=== PATIENT | male | born 1975 | race Caucasian/White ===

== ENCOUNTER 2020-02-05 08:07 | Emergency (ER) | payer MEDICAID, SELFPAY ==
[2020-02-05 08:07] VITALS: BP 136/91; PULSE 130; RESP 20; TEMP 36.6; O2SAT 100; BMI 25.1
--- NOTE | 2020-02-05 08:17 | ED.DCSUM_ITS ---
History of Present Illness Chief Complaint: Anxiety Informant: Patient Narrative: 44-year-old male presenting with anxiety. He states he has had this for 10 years or longer. He states he is usually able to control it with breathing techniques, and if this does not work he will take a couple of shots of liquor which will help it. He is not an everyday drinker. He states his symptoms have been constant since 730 last evening. He states he is never been diagnosed formally because he was never 1 that goes to the doctor. Denies chest pain or shortness of breath. He does feel palpitations. Medical history. No surgical history. No allergies to medicine. Prior similar symptoms: Yes Recent Illness/Hospitalization: No Past Medical History - Allergies and Home Meds Allergies/Adverse Reactions: Allergies No Known Allergies Allergy (Verified 02/05/20 08:09) Primary Care Physician: Care Physician,No Primary [Primary Care Provider] - Prior records reviewed: Yes Past Medical History: - - Anxiety Surgical History: noncontributory Lives: Alone Smoking Status: Unknown if ever smoked Alcohol: None Drugs: None Review of Systems General: Denies: Chills, Fever, Sweats Eyes: Denies: Visual changes - bilaterally, Diplopia ENT: Denies: Rhinorrhea, Sore throat Cardiovascular: Reports: Palpitations, Heart racing. Denies: Chest pain Respiratory: Denies: Dyspnea, Cough, Dyspnea on exertion Gastrointestinal: Denies: Abdominal pain, Nausea, Vomiting, Diarrhea, Melena, Hematochezia Genitourinary: Denies: Dysuria, Hematuria, Frequency Musculoskeletal: Denies: Back pain, Extremity Pain Skin: Denies: Rash, Wounds Neurological: Reports: Parasthesia - Angling in bilateral hands.. Denies: Headache, Weakness, Numbness Psych: Reports: Anxiety. Denies: Suicidal thoughts, Suicidal ideations Physical Exam Vital Signs/Narrative: Vital Signs Temp Pulse Resp BP Pulse Ox 02/05/20 08:07 97.8 F 130 H 20 H 136/91 H 100 Inital Vital Signs reviewed: Yes General: Well nourished, No Acute Distress Head: Normocephalic, Atraumatic Eyes: Perrl, EOMI ENT: Moist mucous membranes, No rhinorrhea Cardiovascular: Regular rhythm, Tachycardia. Negative for: No murmurs Respiratory: No distress, CTA bilaterally Extremities: Nontender, No edema Skin: Normal color, No rash. Negative for: Cyanosis, Diaphoresis Neurological: Alert, Oriented x3, Cranial nerves II-XII grossly intact Psychological: Normal affect, - - Anxious Diagnostic/Tx/Re-eval - Rhythm Strip Rhythm Strip: Sinus Rhythm Rate: 122 - EKG Initial EKG Interpretation: No Acute Injury Pattern, Sinus Tachycardia - Medical Decision Making Patient presents with symptoms of anxiety and he states he has had this for a very long time. Is never been this bad. He states that he is hyperventilating although he does not feel short of breath. Given his symptoms I did do blood work and an EKG. EKG is sinus rhythm at a rate of 102 without ischemic changes as interpreted by myself. Blood work is consistent with a viral illness as he is leukopenic and lymphopenic. Chest x-ray is interpreted by myself and radiologist shows no acute process. I went back to talk to the patient and he states he is having the chills right now. He has not had a fever and does not feel febrile. Given his symptoms I did test him for Covid?19. Since his work- up is negative I feel he is safe to be discharged home will quarantine until he gets his test results. Impression: 1. Anxiety reaction 2. Viral syndrome ED Disposition - Plan for ED Patient: Disposition: Home or Assisted Living Instructions: Coronavirus Disease 2019 (COVID-19): Overview, Coronavirus Disease 2019 (COVID-19): Caring for Yourself or Others, ED Anxiety Reaction Prescriptions: Hydroxyzine HCl 25 mg PO Q8H PRN PRN #30 tab PRN Reason: Anxiety Prescription Printed Referrals: Care Physician,No Primary [Primary Care Provider] -
--- NOTE | 2020-02-05 08:25 | RAD_ITS ---
STUDY: X-RAY CHEST REASON FOR EXAM: Male, 44 years old. ANXIETY SUDDEN ONSET LAST NIGHT 1899. TINGLING TO HANDS, INCREASED HEART RATE TECHNIQUE: Single AP portable view of the chest. COMPARISON: None. FINDINGS: The lungs are clear and expanded. There is no demonstrated pleural abnormality. Normal size heart. Normal mediastinum and ga. Normal visualized pulmonary arteries. Normal visualized aortic arch and descending thoracic aorta. Normal visualized thoracic spine. Normal visualized ribs, clavicles, and shoulders. There is no demonstrated abnormality of the visualized soft tissue structures of the upper abdomen. RAD/Chest 1 View (Portable) IMPRESSION: Normal x-ray examination of the chest. Electronically Signed: Chema Campa MD at 10:00 EST Tel , Service support ,
--- NOTE | 2020-02-05 08:25 | EKG12_ITS ---
Test Reason : Blood Pressure : / mmHG Vent. Rate : 122 BPM Atrial Rate : 122 BPM P-R Int : 152 ms QRS Dur : 086 ms QT Int : 330 ms P-R-T Axes : 080 047 077 degrees QTc Int : 470 ms Sinus tachycardia Cannot rule out Inferior infarct , age undetermined Abnormal ECG Confirmed by GASPER HERMAN, NATALIE ([id number]), editorial writer ADRIAN ANDRES ([id number]) on 02/11/2020 9:19:15 AM Referred By: MAIA Confirmed By:PATTY JACKMAN MD
--- NOTE | 2020-02-05 08:28 | NURSING ---
NO OLD EKGS
[2020-02-05 09:24] LABS: Absolute Lymphocyte Count 0.41 X10^3/uL (0.83-4.51); Absolute Neutrophil Count 2.9 X10^3/uL (2.0-7.7); Basophil# 0.02 X10^3/uL; Basophil% 0.6 % (0-1); Hematocrit 45.9 % (40-54); Hemoglobin 16.4 g/dL (13.0-16.5); Lymphocyte # 0.41 X10^3/ul (4.0); Lymphocyte % 11.4 % (19-41); Mean Corp Hgb Conc 35.7 g/dL (32-36); Mean Corpuscular Hgb 34.5 pg (27.0-32.0); Mean Corpuscular Volume 96.4 fL (80-94); Mean Platelet Vol. 10.7 fl (6.2-12.0); Monocyte# 0.29 X10^3/uL; Monocyte% 8.1 % (0-10); NRBC Flagged by Analyzer 0 % (0-5); Neutrophil # 2.86 X10^3/uL (2.7-7.7); Neutrophil % 79.6 % (47-70); POSITIVE COUNT YES; POSITIVE DIFFERENTIAL YES; Platelet Count 88 K/mm3 (150-450); RBC Distribution Width CV 11.6 % (11.6-14.6); Red Blood Count 4.76 M/mm3 (4.6-6.2); White Blood Count 3.6 K/mm3 (4.4-11.0)
[2020-02-05 09:25] VITALS: BP 153/116; PULSE 101; RESP 19; O2SAT 100
[2020-02-05 09:25] LABS: Differential Indicated SCAN CRITERIA MET
[2020-02-05] MEDS: Aspirin 81 MG TAB.CHEW 324 MG PO (09:26)
[2020-02-05] MEDS: 0.9% Normal Saline 1,000 ML 1000 ML IV (09:26)
[2020-02-05] MEDS: LORazepam 2 MG/ML Syringe 0.5 MG IV (09:27)
[2020-02-05 09:38] LABS: Anion Gap 16 (5-15); BUN 8 mg/dL (7-18); BUN/Creat Ratio 9.1 RATIO (10-20); Calcium,Total 9.4 mg/dL (8.5-10.1); Chloride 98 mmol/L (98-107); Creatinine, Serum 0.88 mg/dL (0.70-1.30); EST Glomerular Filtration Rate 100 mL/min (>60); Est Glom Filt Rate - Afr Amer 121 mL/min (>60); Estimated Creatinine Clearance 111.76 ml/min; Glucose 110 mg/dL (74-106); Potassium 3.1 mmol/L (3.5-5.1); Sodium Level 136 mmol/L (136-145)
[2020-02-05 10:08] VITALS: BP 159/67; PULSE 52; RESP 16; O2SAT 98
[2020-02-06 11:43] LABS: Pathologist Review Reviewed
== END 2020-02-05 10:22 | disposition home or self-care (01) ==
PROVIDERS: Emergency Provider Student in an Organized Health Care Education/Training Program
DX: F41.1 Generalized anxiety disorder (principal); B34.9 Viral infection, unspecified
CPT/HCPCS: 71045; 80048; 84484; 85025; 87426; 93005; 96361; 96374; 99284; J7030; A4216

== ENCOUNTER 2020-09-21 10:23 | Emergency (ER) | payer MEDICAID, SELFPAY ==
[2020-03-05 11:10] VITALS: BMI 25.1
[2020-09-21 10:24] VITALS: BP 143/106; PULSE 118; RESP 16; TEMP 36.4; O2SAT 99; BMI 24.2
[2020-09-21] MEDS: predniSONE 20 MG Tablet 40 MG PO (10:40)
--- NOTE | 2020-09-21 10:41 | EX.ED.DYSGE1 ---
HPI History of Present Illness Chief Complaint: Rash Informant: patient Narrative Narrative: Patient is a 45-year-old male who is previously healthy who presents to the emergency department for rash on his face, arms, abdomen. He states that he was working out in the yard this past Tuesday and thinks he could have been exposed to poison jacquelyn. He is never had a reaction like this before. He has been trying calamine lotion for which has not been giving significant relief. His eyes have been tearing up but denies any significant eye pain. No oral lesions. No difficulty breathing or swallowing. No chest pain, shortness of breath. He denies any fever/chills. No abdominal pain or nausea/vomiting. [facility] Medical History (Updated 09/21/20 @ 10:43 by Paz Oakley) Kidney stone Home Medications hydroxyzine HCl 25 mg PO Q8H PRN PRN #30 tab 02/05/20 [Rx Last Taken Unknown] tumeric PO 03/05/20 [History Last Taken Unknown] prednisone 40 mg PO DAILY 4 Days #8 tab 09/21/20 [Rx Last Taken Unknown] Allergy/AdvReac Type Severity Reaction Status Date / Time No Known Allergies Allergy Verified 09/21/20 10:24 Social History Smoking Status: Unknown if ever smoked alcohol intake: current alcohol intake frequency: 3 or more drinks per day details: 5-10 shots vodka daily substance use type: does not use ROS ROS ED Constitutional Constitutional ED: Denies chills or fever(s) Eyes Eyes: Denies change in vision ENT ENT ED: Denies epistaxis or rhinorrhea Cardiovascular Cardiovascular: Denies chest pain Respiratory/Chest Respiratory/Chest: Denies cough or dyspnea Gastrointestinal Gastrointestinal: Denies abdominal pain, diarrhea or vomiting Musculoskeletal Musculoskeletal: Denies back pain or neck pain Integumentary Reports rash Neurologic Neurologic: Denies dizziness, headache(s) or weakness EXAM Physical Exam Const Vital Signs: 09/21/20 10:24 Temperature 97.6 F L Temperature Source Temporal Pulse Rate 118 H Respiratory Rate 16 Blood Pressure 143/106 H Blood Pressure Mean 118 Pulse Ox 99 Oxygen Delivery Method Room Air Positive well nourished and well developed General Appearance ED: well developed and NAD HEENT Reports moist mucous membranes Eyes PERRL and EOMs intact bilaterally Neck no lymphadenopathy and supple General: Negative for tenderness Chest Wall inspection of chest normal Resp normal respiratory effort and clear to auscultation bilaterally Auscultation: Negative for rales, rhonchi or wheezes Cardio regular rhythm and no murmurs GI normal to inspection, nondistended, normoactive bowel sounds and non-tender Palpation: soft; Negative for guarding or rebound tenderness present Extremity normal to inspection General Extremety ED: Negative for edema or tenderness General Extremity: Negative for edema Neuro CN's II-XII intact bilaterally and no sensory deficits noted Sensorium / Orientation: alert Motor Exam: strength 5/5 throughout Psych mental status grossly normal Skin Skin Narrative: Erythema, macular lesions spread out on the arms, abdomen. Face is swollen, red with similar pattern. MDM MDM MDM Narrative Medical decision making narrative: Patient presents the ED after pulling weeds and now developing a significant rash. He overall feels well besides the itchy rash. Given the extent of the lesions which is consistent with poison jacquelyn will place him on prednisone. He is given first dose here in the emergency department given a prescription for home treatment. Patient advised to clean all close that he was previously out in the weeds with. He is discharged home in stable condition. Return precautions reviewed with him. He understands and is agreeable this plan. All questions are answered. Discharge Plan Triage Chief Complaint: Rash ED Provider: Jabari Huff Dx/Rx/DC Orders Clinical Impression: Contact dermatitis Instructions: ED Poison Jacquelyn Rash Prescriptions: New prednisone 20 mg tablet 40 mg PO DAILY 4 Days Qty: 8 RF: 0 No Action tumeric PO RF: 0 hydroxyzine HCl 25 MG tablet 25 mg PO Q8H PRN PRN (Reason: Anxiety) Qty: 30 RF: 0 Primary Care Provider: Care Physician,No Primary Referrals: Care Physician,No Primary [Primary Care Provider] - 2 Days Disposition Disposition: Home, Self Care Discharge Date/Time: 09/21/20 10:58
== END 2020-09-21 10:58 | disposition home or self-care (01) ==
LOC: ED 10:54
PROVIDERS: Emergency Provider Emergency Medicine
DX: L25.5 Unspecified contact dermatitis due to plants, except food (principal)
CPT/HCPCS: 99283